=== PATIENT | female | born 1990 | race Caucasian/White ===

== ENCOUNTER 2018-03-12 08:13 | Inpatient (IN) | payer BC ==
[~2018-03-12] VITALS: Ht 170.2 cm; Wt 67.7 kg
[2018-03-12 22:10] VITALS: BP 135/77
[2018-03-12] MEDS ORDERED: OXYTOCIN 30U/ 0.9% NaCL 500ML 500 ML ONE (22:21)
[2018-03-12] MEDS ORDERED: NEWBORN KIT ONE (22:21)
[2018-03-12] MEDS ORDERED: OXYTOCIN 30U/ 0.9% NaCL 500ML 500 ML IV ONE (22:22)
[2018-03-12] MEDS ORDERED: OXYTOCIN 30U/ 0.9% NaCL 500ML 500 ML IV PRN (22:22)
[2018-03-12] MEDS ORDERED: LACTATED RINGERS 1,000 ML IV SCH ×2 (22:22→23:31)
[2018-03-12] MEDS ORDERED: D5%-LACTATED RINGERS 1,000 ML IV SCH (22:22)
[2018-03-12] MEDS ORDERED: ONDANSETRON 2MG/ML, 2ML IVPush PRN (22:30)
[2018-03-12] MEDS ORDERED: FENTANYL PF 100 MCG/2ML IV PRN (22:30)
[2018-03-12] MEDS ORDERED: FENTANYL PF 100 MCG/2ML IVPush PRN (22:30)
[2018-03-12] MEDS ORDERED: CALCIUM CARBONATE 500 MG TAB.CHEW PO PRN (22:30)
[2018-03-12 22:52] LABS: BASOPHILS # (AUTO) 0.03 x10^3/uL (0-0.1); BASOPHILS % (AUTO) 0 % (0-1); EOSINOPHILS # (AUTO) 0.17 x10^3/uL (0-0.4); EOSINOPHILS % (AUTO) 2 % (1-7); LYMPHOCYTES % (AUTO) 23 % (22-44); MD NO; MEAN CORPUSCULAR HEMOGLOBIN 32.2 pg (27.0-34.8); MEAN CORPUSCULAR HGB CONC 34.6 g/dL (32.4-35.8); MEAN PLATELET VOLUME 7.7 fL (7.4-10.4); MONOCYTES # (AUTO) 0.95 x10^3/uL (0.2-0.8); MONOCYTES % (AUTO) 9 % (2-9); NEUTROPHILS # (AUTO) 7.15 x10^3/uL (1.8-6.8); NEUTROPHILS % (AUTO) 67 % (42-75); PLATELET COUNT 249 x10^3/uL (130-400); RED BLOOD COUNT 3.57 x10^6/uL (3.82-5.3)
[2018-03-12] MEDS ORDERED: FENTANYL/BUPIV./NS/PF 250 ML EPIDCONT SCH ×2 (23:29→23:31)
[2018-03-13] MEDS ORDERED: EPHEDRINE 50 MG/ML, 1ML IVPush PRN
[2018-03-13] MEDS ORDERED: LACTATED RINGERS 1,000 ML IVBOLUS PRN
[2018-03-13] MEDS ORDERED: NALOXONE 0.4 MG/ML, 1ML IVPush PRN
[2018-03-13] MEDS ORDERED: MISOPROSTOL 200 MCG TABLET ONE (01:00)
[2018-03-13] MEDS ORDERED: DIPH,PERTUSS(ACELL),TET VAC/PF NC IM-VACC PRN (04:30)
[2018-03-13] MEDS ORDERED: MEASLES,MUMPS&RUBELLA VACC/PF 0.5 ML SQ PRN (04:30)
[2018-03-13] MEDS ORDERED: RHOGAM FROM BLOOD BANK 1 NOTE EA IM/IV ONE (04:30)
[2018-03-13] MEDS ORDERED: MAGNESIUM HYDROXIDE 8%, 30ML UDC PO PRN (04:30)
[2018-03-13] MEDS ORDERED: OXYcodone/APAP 5/325MG TABLET PO PRN (04:30)
[2018-03-13] MEDS ORDERED: MISOPROSTOL 200 MCG TABLET PR PRN (04:30)
[2018-03-13] MEDS ORDERED: OXYcodone IR 5MG TABLET PO PRN (04:30)
[2018-03-13] MEDS ORDERED: ONDANSETRON 2MG/ML, 2ML IV PRN (04:30)
[2018-03-13] MEDS ORDERED: CALCIUM CARBONATE 500 MG TAB.CHEW PO PRN (04:30)
[2018-03-13] MEDS ORDERED: DOCUSATE 100 MG CAPSULE PO PRN (04:30)
[2018-03-13] MEDS: OXYTOCIN 30U/ 0.9% NaCL 500ML 500 ML IV SCH ×2 (04:46→14:28)
[2018-03-13] MEDS ORDERED: IBUPROFEN 600 MG TABLET ONE (04:49)
[2018-03-13] MEDS ORDERED: OXYcodone/APAP 5/325MG TABLET ONE (04:50)
[2018-03-13] MEDS: IBUPROFEN 600 MG TABLET PO PRN ×4 (04:51→21:55)
[2018-03-13 08:00] VITALS: BP 130/80
[2018-03-13] MEDS: PRENATAL VIT/IRON/FA 1 EACH TABLET PO SCH (09:00)
[2018-03-13 12:00] VITALS: BP 119/76
[2018-03-13 13:10] LABS: BASOPHILS # (AUTO) 0.02 x10^3/uL (0-0.1); BASOPHILS % (AUTO) 0 % (0-1); EOSINOPHILS # (AUTO) 0.13 x10^3/uL (0-0.4); EOSINOPHILS % (AUTO) 1 % (1-7); LYMPHOCYTES # (AUTO) 2.08 x10^3/uL (1-3.4); LYMPHOCYTES % (AUTO) 20 % (22-44); MD NO; MEAN CORPUSCULAR HEMOGLOBIN 31.5 pg (27.0-34.8); MEAN CORPUSCULAR HGB CONC 33.8 g/dL (32.4-35.8); MEAN PLATELET VOLUME 7.8 fL (7.4-10.4); MONOCYTES # (AUTO) 0.84 x10^3/uL (0.2-0.8); MONOCYTES % (AUTO) 8 % (2-9); NEUTROPHILS # (AUTO) 7.37 x10^3/uL (1.8-6.8); NEUTROPHILS % (AUTO) 71 % (42-75); PLATELET COUNT 217 x10^3/uL (130-400); RED BLOOD COUNT 3.51 x10^6/uL (3.82-5.3)
[2018-03-13 16:00] VITALS: BP 132/81
[2018-03-13 20:00] VITALS: BP 127/79
[2018-03-14] VITALS: BP 112/75
[2018-03-14] MEDS: OXYTOCIN 30U/ 0.9% NaCL 500ML 500 ML IV SCH (00:28)
[2018-03-14 05:00] VITALS: BP 122/81
[2018-03-14 08:00] VITALS: BP 126/86
[2018-03-14] MEDS: IBUPROFEN 600 MG TABLET PO PRN (08:01)
[2018-03-14] MEDS: PRENATAL VIT/IRON/FA 1 EACH TABLET PO SCH (08:02)
== END 2018-03-14 12:45 | disposition home or self-care (01) | DRG 806 ==
LOC: LDIP 21:59 → 2NW 03-13 08:02
PROVIDERS: ADMIT Obstetrics & Gynecology Gynecology; ATTEND Obstetrics & Gynecology Gynecology
PROC: 10E0XZZ Delivery of Products of Conception, External Approach (ICD-10-PCS; principal; 2018-03-13)
PROC: 0HQ9XZZ Repair Perineum Skin, External Approach (ICD-10-PCS; 2018-03-13)
PROC: 3E0R3BZ Introduction of Anesthetic Agent into Spinal Canal, Percutaneous Approach (ICD-10-PCS; 2018-03-13)
PROC: 00HU33Z Insertion of Infusion Device into Spinal Canal, Percutaneous Approach (ICD-10-PCS; 2018-03-13)
PROC: 0UQGXZZ Repair Vagina, External Approach (ICD-10-PCS; 2018-03-13)
PROC: 3E033VJ Introduction of Other Hormone into Peripheral Vein, Percutaneous Approach (ICD-10-PCS; 2018-03-13)
DX: O69.81X0 Labor and delivery complicated by cord around neck, without compression, not applicable or unspecified (principal); O71.4 Obstetric high vaginal laceration alone; Z37.0 Single live birth; O70.0 First degree perineal laceration during delivery; Z3A.39 39 weeks gestation of pregnancy; Z80.3 Family history of malignant neoplasm of breast; Z82.3 Family history of stroke; Z82.49 Family history of ischemic heart disease and other diseases of the circulatory system
CPT/HCPCS: 36415; 85025; 86850; 86900; G0378; J2590; J3010; J7120